=== PATIENT | male | born 2000 | race Caucasian/White ===

== ENCOUNTER 2023-03-11 17:25 | Emergency (ER) | payer BC ==
[~2023-03-11] VITALS: Ht 182.9 cm; Wt 106.8 kg
[2023-03-11 19:45] VITALS: BP 120/71; PULSE 80
== END 2023-03-11 19:58 | disposition home or self-care (01) ==
LOC: COL.ER 17:25
DX: H61.22 Impacted cerumen, left ear (principal); T75.4XXA Electrocution, initial encounter; R00.1 Bradycardia, unspecified; Z28.310 Unvaccinated for COVID-19